=== PATIENT | male | born 1990 | race Caucasian/White ===

== ENCOUNTER 2018-12-09 08:30 | Emergency (ER) | payer MEDICAID, OTHER ==
[2018-12-09 08:36] VITALS: BMI 25.1
[2018-12-09 08:39] VITALS: RESP 18
[2018-12-09] MEDS ORDERED: Sodium Chloride 0.9% 1,000 ML IV ONE (09:09)
[2018-12-09 09:38] LABS: BASO % 0.4 % (0.0-2.0); EOS % 0.9 % (0.0-4.0); HEMOGLOBIN 14.9 g/dL (12.0-18.0); LYMPH % 6.8 % (20.0-40.0); MEAN CELL VOLUME 87.8 fL (80.0-94.0); MEAN CORPUSCULAR HEMOGLOBIN 29.7 pg (27.0-31.0); MEAN CORPUSCULAR HGB CONC 33.8 g/dL (33.0-37.0); MEAN PLATELET VOLUME 7.7 fL (7.2-11.7); MONO % 8.5 % (0.0-10.0); NEUT % 83.4 % (50.0-75.0); PLATELET COUNT 225 K/uL (130-400); RBC 5.01 Mil/uL (4.40-5.90); RED CELL DISTRIBUTION WIDTH 13.6 % (11.5-14.5); WHITE BLOOD COUNT 10.2 K/uL (4.8-10.8)
[2018-12-09 09:39] LABS: EOS # 0.1 K/uL (0.0-0.7); LYMPH # 0.7 K/uL (1.0-4.3); MONO # 0.9 K/uL (0.0-0.8); NEUT # 8.5 K/uL (1.8-7.0)
[2018-12-09 09:48] LABS: ALB/GLOB RATIO 1.7 (1.0-2.1); ALBUMIN 4.8 g/dL (3.5-5.0); ALT/SGPT 23 U/L (21-72); AST/SGOT 27 U/L (17-59); BLOOD UREA NITROGEN 23 mg/dL (9-20); CALCIUM 9.4 mg/dl (8.6-10.4); GFR NON-AFRICAN AMERICAN > 60; LIPASE 62 U/L (23-300)
[2018-12-09] MEDS ORDERED: Sodium Chloride 0.9% 1,000 ML ONE (09:59)
--- NOTE | 2018-12-09 09:59 | C.PDOC ---
History Of Present Illness Patient is a 28 year old male with no medical problems, who presents to the ED for evaluation of nausea, vomiting, and diarrhea that have been present for the past 2 days. Patient states that he doesn't feel good and feels hot. He denies any sick contacts, chills, body aches, headaches, dysuria, hematochezia, or any allergies. Time Seen by Provider: 12/09/18 08:48 Chief Complaint (Nursing): GI Problem History Per: Patient History/Exam Limitations: no limitations Onset/Duration Of Symptoms: Days (2) Current Symptoms Are (Timing): Still Present Associated Symptoms: Fever, Nausea, Vomiting, Diarrhea. denies: Chills, Urinary Symptoms, Other (headaches, body aches) Recent travel outside of the [place]: No Additional History Per: Patient Past Medical History Reviewed: Historical Data, Nursing Documentation, Vital Signs Vital Signs: Last Vital Signs Temp 98.2 F 12/09/18 08:36 Pulse 90 12/09/18 08:36 Resp 18 12/09/18 08:36 BP 126/85 12/09/18 08:36 Pulse Ox 99 12/09/18 08:36 - Medical History PMH: No Chronic Diseases Surgical History: Appendectomy - [facility] Procedures CLOSURE SKIN & SUBCUTANEOUS NEC (08/18/14) TETANUS TOXOID ADMINIST (08/18/14) Family History: States: Unknown Family Hx - Social History Hx Tobacco Use: Yes Hx Alcohol Use: Yes Hx Substance Use: Yes (weed) - Immunization History Hx Tetanus Toxoid Vaccination: Yes Hx Influenza Vaccination: No Hx Pneumococcal Vaccination: No Review Of Systems Constitutional: Positive for: Fever. Negative for: Chills, Other (body aches ) Gastrointestinal: Positive for: Nausea, Vomiting, Diarrhea. Negative for: Hematochezia Genitourinary: Negative for: Dysuria Neurological: Negative for: Headache Physical Exam - Physical Exam Appears: Well, Non-toxic, Other (awake, alert) Skin: Normal Color, Warm, Dry Head: Atraumatic, Normacephalic Neck: Normal ROM, Supple Chest: Symmetrical, No Deformity Cardiovascular: Rhythm Regular, No Murmur Respiratory: Normal Breath Sounds, No Rales, No Rhonchi Gastrointestinal/Abdominal: Soft, Tenderness (diffuse), No Guarding, No Rebound Extremity: No Pedal Edema ED Course And Treatment - Laboratory Results Result Diagrams: 12/09/18 09:30 12/09/18 09:30 Lab Results: Total Bilirubin 0.5 mg/dL (0.2-1.3) 12/09/18 09:30 AST 27 U/L (17-59) 12/09/18 09:30 ALT 23 U/L (21-72) 12/09/18 09:30 Alkaline Phosphatase 76 U/L (38-126) 12/09/18 09:30 Total Protein 7.6 g/dL (6.3-8.3) 12/09/18 09:30 Albumin 4.8 g/dL (3.5-5.0) 12/09/18 09:30 Globulin 2.9 gm/dL (2.2-3.9) 12/09/18 09:30 Albumin/Globulin Ratio 1.7 (1.0-2.1) 12/09/18 09:30 Lipase 62 U/L (23-300) 12/09/18 09:30 O2 Sat by Pulse Oximetry: 99 (on RA) Pulse Ox Interpretation: Normal Medical Decision Making Medical Decision Making: Bloodwork ordered and reviewed. Zofran 4mg IVP and IV Fluids administered. Discussed lab results with the patient, which were negative. Patient instructed to follow-up with the clinic. Disposition Counseled Patient/Family Regarding: Studies Performed, Diagnosis, Need For Followup - Disposition Referrals: [facility] [Outside] [facility] [Outside] Disposition: HOME/ ROUTINE Disposition Time: 11:07 Condition: IMPROVED Additional Instructions: BRITTANY CISNEROS, thank you for letting us take care of you today. Your provider was Mandy Leyva MD and you were treated for VOMITING. The emergency medical care you received today was directed at your acute symptoms. If you were prescribed any medication, please fill it and take as directed. It may take several days for your symptoms to resolve. Return to the Emergency Department if your symptoms worsen, do not improve, or if you have any other problems. Please contact your doctor or call one of the physicians/clinics you have been referred to that are listed on the Patient Visit Information form that is included in your discharge packet. Bring any paperwork you were given at discharge with you along with any medications you are taking to your follow up visit. Our treatment cannot replace ongoing medical care by a primary care provider outside of the emergency department. Thank you for allowing the [facility] team to be part of your care today. If you had an X-Ray or CT scan: A Radiologist will review the ED reading if any change in treatment is needed we will contact you. If you had a blood, urine, or wound culture: It will take several days for the results, if any change in treatment is needed we will contact you. If you had an STI test: It will take 48 hours for the results. Please call after 1 week if you have not heard back. Instructions: Diarrhea in Adolescents and Adults, Nausea and Vomiting, Adult, Acute Abdomen (Belly Pain), Adult (DC) Forms: [employer] (French), General Discharge Instructions, Work Excuse - POA Present On Arrival: None - Clinical Impression Clinical Impression: Abdominal pain, vomiting, and diarrhea - Scribe Statement The provider has reviewed the documentation as recorded by the Karliibmay Rubalcava
[2018-12-09 10:08] LABS: BANDS 7 % (0-2); LYMPHOCYTE 7 % (20-40); MONOCYTE 10 % (0-10); NEUTROPHIL 76 % (50-75); PLATELET ESTIMATE NORMAL (NORMAL); TOTAL CELLS COUNTED 100
[2018-12-09 11:28] VITALS: BP 110/71; PULSE 81; TEMP 97.1; O2SAT 98
== END 2018-12-09 11:29 | disposition home or self-care (01) ==
LOC: C.ER 08:30
DX: R11.2 Nausea with vomiting, unspecified (principal); R10.9 Unspecified abdominal pain; R19.7 Diarrhea, unspecified
CPT/HCPCS: 80053; 83690; 85025; 96361; 96374; 99284; J2405; J7030